=== PATIENT | female | born 1975 | race Caucasian/White ===

== ENCOUNTER 2016-09-11 12:31 | Emergency (ER) | payer OTHER ==
[2016-09-11 13:02] VITALS: BP 105/60; PULSE 85; RESP 14; TEMP 98.1; O2SAT 94
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
--- NOTE | 2016-09-11 13:37 | DX ---
Right Ankle, Three Views History: Lateral pain, post trauma. COMPARISON: June 16, 2014 Findings: No fracture, effusion, or dislocation is identified. 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 Impression: Nothing acute identified.
== END 2016-09-11 13:39 | disposition home or self-care (01) ==
LOC: CED 12:31
DX: S93.401A Sprain of unspecified ligament of right ankle, initial encounter (principal); Z87.891 Personal history of nicotine dependence
CPT/HCPCS: 73610-PO; G0463-PO